=== PATIENT | male | born 2000 | race Caucasian/White ===

== ENCOUNTER 2021-10-05 09:41 | Emergency (ER) | payer OTHER ==
[~2021-10-05] VITALS: Ht 175.3 cm; Wt 104.3 kg
[2021-10-05 10:01] VITALS: BP 138/80
[2021-10-05 10:05] VITALS: BP 138/80
--- NOTE | 2021-10-05 10:07 | NUR ---
ARRIVAL PATIENT ARRIVED TO ED8 AMBULATORY WITH FRIEND,C/O RIGHT HAND INJURY YESTERDAY, PATIENT HAS BEEN DEMOLISHING AT A RESIDENCE WHEN HE FELT A "POP", CAME TO THE ED FOR EVAL, DOCTOR MILADIS NOTIFIED OF PATIENT'S ARRIVAL.
--- NOTE | 2021-10-05 10:32 | DIREP ---
PROCEDURE:XRAY HAND MIN 3 VW-RT COMPARISON:None. INDICATIONS:HAND INJURY FINDINGS: BONES:No fracture is seen. 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 JOINTS:Normal. SOFT TISSUES:Normal. OTHER:No additional findings. CONCLUSION:No fracture is seen. Dictated by: Marin Siu M.D. on 10/05/2021 at 10:29 AM
[2021-10-05 10:39] VITALS: BP 143/78
--- NOTE | 2021-10-05 10:58 | ER.PDOC ---
General Chief Complaint: Extremities Stated Complaint: RT HAND INJURY Time seen by MD: 10:53 Source: patient Exam Limitations: no limitations History of Present Illness Initial Comments Injury of right middle finger while at work this morning. Patient hyperextended his finger. Occurred: this morning Where: work Severity: moderate Context: other (hyperextended the finger) Location of Injury: (R) fingers Allergies: Coded Allergies: No Known Allergies (Unverified , 10/05/21) Past Medical History Medical History: no pertinent history Surgical History: other Family History Significant Family History: no pertinent family hx Social History Smoking: non-smoker Alcohol Use: none Drug Use: none Review of Systems Constitutional: no symptoms reported EENTM: no symptoms reported Respiratory: no symptoms reported Cardiovascular: no symptoms reported Gastrointestinal: no symptoms reported Musculoskeletal: see HPI All Other Systems: Reviewed and Negative Physical Exam General Appearance: Alert, No Apparent Distress Hand: tenderness (Right middle finger without swelling or deformity.) Wrist: nml inspection, non-tender, nml ROM Neuro: sensation nml, motor nml Vascular: no vascular compromise Tendons: tendon function nml Forearm/Elbow/Arm: uninjured above wrist Skin: warm/dry Head/ENT: nml inspection, pharynx nml Neck/Back: nml inspection, non-tender Resp/CVS: no resp distress, lungs clear, heart sounds nml, reg. rate & rhythm Abdomen: non-tender, no organomegaly Results/Orders Results/Orders Orders - CHRISSY REDDING MD Xr Hand Rt (10/05/21 09:58) Vital Signs Date Time Temp Pulse Resp B/P (MAP) Pulse Ox O2 Delivery O2 Flow Rate FiO2 10/05/21 10:39 97.4 66 18 143/78 (99) 96 Room Air 10/05/21 10:05 97.4 81 18 138/80 (99) 96 Room Air 10/05/21 10:01 97.4 81 18 138/80 (99) 96 Room Air 10/05/21 10:01 97.4 81 18 10/05/21 10:01 97.4 81 18 96 Progress Progress X-rays of right hand shows no acute bony abnormality. Finger splinted. ER DEPART Departure Time of Disposition: 10:55 Disposition: 01 HOME / SELF CARE / HOMELESS Impression: Primary Impression: Injury of finger of right hand Additional Impression: Sprain of finger of right hand Condition: Stable Referrals: PCP,UNKNOWN (PCP) PRIMARY CARE PROVIDER Additional Instructions: Ice Ibuprofen Follow-up with your PCP in 1 week Return to ED if worsening or concerns Duration or Time Spent with Pa: 10 min Problem Qualifiers Primary Impression: Injury of finger of right hand Encounter type: initial encounter Qualified Codes: S69.91XA - Unspecified injury of right wrist, hand and finger(s), initial encounter Additional Impression: Sprain of finger of right hand Encounter type: initial encounter Finger: middle finger Sprain of finger site: unspecified site Qualified Codes: S63.612A - Unspecified sprain of right middle finger, initial encounter CHRISSY REDDING MD Oct 05, 2021 10:58
[2021-10-05 11:01] VITALS: BP 143/78
== END 2021-10-05 11:05 | disposition home or self-care (01) ==
LOC: ER 09:41
DX: S63.612A Unspecified sprain of right middle finger, initial encounter (principal); X58.XXXA Exposure to other specified factors, initial encounter; Y93.89 Activity, other specified; Y92.89 Other specified places as the place of occurrence of the external cause; Y99.0 Civilian activity done for income or pay
CPT/HCPCS: 29130; 99283; 73130-RT